=== PATIENT | female | born 1970 | race Caucasian/White ===

== ENCOUNTER 2016-06-26 05:33 | Day surgery (SDC) | payer OTHER ==
[2016-06-19 10:29] LABS: ABSOLUTE EOSINOPHILS # (AUTO) 0.1 10^3/uL (0.0-0.6); ABSOLUTE LYMPHOCYTES (AUTO) 1.7 10^3/uL (0.5-4.7); ABSOLUTE MONOCYTES (AUTO) 0.5 10^3/uL (0.1-1.4); ABSOLUTE NEUT (AUTO) 4.1 10^3/uL (1.7-8.2); BASOPHILS % (AUTO) 0.3 % (0-2); EOSINOPHILS % (AUTO) 1.9 % (0-6); HEMATOCRIT 41.2 % (36.0-47.0); HEMOGLOBIN 13.2 g/dL (12.0-15.5); HGB HCT DIFFERENCE -1.6; LYMPHOCYTES % (AUTO) 26.5 % (13-45); MEAN CORPUSCULAR HEMOGLOBIN 29.4 pg (27.0-33.4); MEAN CORPUSCULAR HGB CONC 32.1 g/dL (32.0-36.0); MEAN CORPUSCULAR VOLUME 92 fl (80-97); MONOCYTES % (AUTO) 8.1 % (3-13); RED CELL DISTRIBUTION WIDTH 13.9 % (11.5-14.0); SEGMENTED NEUTROPHILS % (AUTO) 63.2 % (42-78); WHITE BLOOD COUNT 6.5 10^3/uL (4.0-10.5)
[2016-06-19 10:37] LABS: PROTHROMBIN TIME 13.4 SEC (11.4-15.4)
[2016-06-19 11:02] LABS: ALANINE AMINOTRANSFERASE 29 U/L (9-52); ALBUMIN 3.6 g/dL (3.5-5.0); ALKALINE PHOSPHATASE 124 U/L (38-126); ANION GAP 10 (5-19); ASPARTATE AMINO TRANSFERASE 18 U/L (14-36); BILIRUBIN,TOTAL 0.4 mg/dL (0.2-1.3); BLOOD UREA NITROGEN 16 mg/dL (7-20); CALCIUM 9.4 mg/dL (8.4-10.2); CARBON DIOXIDE 27 mmol/L (22-30); CHLORIDE 103 mmol/L (98-107); CREATININE RESULT 0.65 mg/dL (0.52-1.25); GLUCOSE 85 mg/dL (75-110); POTASSIUM 4.7 mmol/L (3.6-5.0); SODIUM 140.4 mmol/L (137-145); TOTAL PROTEIN 6.7 g/dL (6.3-8.2)
--- NOTE | 2016-06-19 12:12 | EKG REPORT ---
SEVERITY:- NORMAL ECG - SINUS RHYTHM : Confirmed by: Shahid Trent MD 19-Jun-2016 12:11:29
[~2016-06-26 05:33] MED LIST: CLINDAMYCIN 900 MG/D5W RTU 50 ML IV PRN; LIDOCAINE 0.5% INJ-PF (5 MG/ML) 50 ML SDV SUBCUT PRN; RINGERS SOLUTION,LACTATED 1,000 ML IV PRN
[2016-06-26] MEDS ORDERED: ACETAMINOPHEN 100 ML IV ONE (06:50)
[2016-06-26] MEDS ORDERED: FENTANYL CITRATE INJ/PF 250 MCG/5 ML AMPULE ONE (06:50)
[2016-06-26] MEDS ORDERED: HYDROMORPHONE HCL INJ/PF 2 MG/ML AMPULE ONE (06:50)
[2016-06-26] MEDS ORDERED: MIDAZOLAM 2 MG/2 ML INJ ONE (06:50)
[2016-06-26] MEDS ORDERED: PROPOFOL INJ 200 MG/20 ML VIAL IV ONE (06:50)
[2016-06-26] MEDS ORDERED: DEXMEDETOMIDINE INJ 80 MCG/20 ML VIAL IV ONE (06:51)
[2016-06-26] MEDS ORDERED: BUPIVACAINE HCL 0.25 % INJ/PF (2.5 MG/1 ML) 30 ML VIAL ONE (07:22)
[2016-06-26] MEDS ORDERED: METHYLENE BLUE INJ/PF 10 MG/1 ML SDV ONE (07:25)
[2016-06-26] MEDS ORDERED: DIPHENHYDRAMINE HCL 50 MG/ML VIAL IV PRN (10:49)
[2016-06-26] MEDS ORDERED: FENTANYL CITRATE INJ/PF 100 MCG/2 ML AMPUL IV PRN ×3 (10:49)
[2016-06-26] MEDS ORDERED: OXYCODONE-ACETAMINOPHEN 5-325 MG TABLET PO PRN ×2 (10:49)
[2016-06-26] MEDS ORDERED: MORPHINE SULFATE 10 MG/ML INJ IV PRN ×2 (10:49→11:46)
[2016-06-26] MEDS ORDERED: PROMETHAZINE HCL INJ 25 MG/1 ML VIAL IV PRN ×3 (10:49→11:47)
[2016-06-26] MEDS ORDERED: MEPERIDINE HCL/PF INJ 25 MG/1 ML DISP.SYRIN IV PRN (10:49)
[2016-06-26] MEDS: FENTANYL CITRATE INJ/PF 100 MCG/2 ML AMPUL ONE ×2 (11:05→11:10)
[2016-06-26] MEDS ORDERED: ONDANSETRON HCL INJ/PF 4 MG/2 ML SDV IV PRN ×2 (11:47→12:57)
[2016-06-26] MEDS ORDERED: NEOSTIGMINE METHYLSULFATE 10 MG/10 ML VIAL ONE (11:58)
[2016-06-26] MEDS ORDERED: SUCCINYLCHOLINE CHLORIDE INJ 200 MG/10 ML VIAL ONE (11:58)
[2016-06-26] MEDS ORDERED: GLYCOPYRROLATE INJ 0.4 MG/2 ML VIAL ONE (11:58)
[2016-06-26] MEDS ORDERED: KETOROLAC TROMETHAMINE 60 MG/2 ML SDV ONE (11:58)
[2016-06-26] MEDS ORDERED: ONDANSETRON HCL INJ/PF 4 MG/2 ML SDV ONE (11:58)
[2016-06-26] MEDS ORDERED: DEXAMETHASONE SOD PHOSPHATE INJ 4 MG/1 ML VIAL ONE (11:58)
[2016-06-26] MEDS ORDERED: LIDOCAINE 2% INJ-PF (20 MG/ML) 10 ML AMPUL ONE (11:58)
[2016-06-26] MEDS ORDERED: ROCURONIUM BROMIDE INJ 50 MG/5 ML VIAL IV ONE (11:58)
[2016-06-26] MEDS ORDERED: OXYCODONE HCL IR 5 MG TABLET PO PRN (12:09)
--- NOTE | 2016-06-26 12:13 | OPERATIVE REPORT E ---
Operative Report NAME: CHARLES SANTOS : 1970 AGE: 46Y DATE OF SURGERY: 06/26/2016 ROOM: PREOPERATIVE DIAGNOSIS: Menometrorrhagia unresponsive to medical therapy. POSTOPERATIVE DIAGNOSIS: Menometrorrhagia unresponsive to medical therapy. OPERATION PERFORMED: 1. Robotic total laparoscopic hysterectomy. 2. Right salpingo-oophorectomy. 3. Cystoscopy. SURGEON: Zee Murguia MD COMPOSITE ENGINEER: Gal Mathews MD ANESTHESIA: General. ESTIMATED BLOOD LOSS: 200. INTRAVENOUS FLUIDS: 1500 mL. URINE OUTPUT: 250 mL clear urine at end of procedure. COMPLICATIONS: None. INDICATIONS: Patient is a 46-year-old 2, para 2-0-0-2 who has had menometrorrhagia for several years and has attempted multiple medical regimens including control pills and intrauterine device. Patient persisted to continue to have excessive heavy vaginal bleeding without the resolution of symptoms. Patient was counseled on procedure of robotic hysterectomy including but not limited to bleeding, infection, injury to surrounding organs or tissue, need of transfusion, possible exploratory laparotomy in case there is bleeding that cannot be identified or visualized during the surgical procedure. Patient understood and consented to procedure and agreed to proceed to the operating room. FINDINGS: Uterine sound 8 cm, soft, boggy, anteverted, mobile uterus. Boggy soft uterus consistent with adenomyosis. Normal right ovary and normal right tube. There was a remnant of the left fallopian tube that had a paratubal cyst. Also, there were multiple anterior abdominal adhesions from her previous surgical procedures. DESCRIPTION OF PROCEDURE: Patient was taken to operating room, and general anesthesia was induced without any difficulty. She was placed in the dorsal lithotomy position and sterilely prepped and draped in the usual sterile fashion. A Ortega catheter was placed in the bladder. A heavy weighted speculum was placed in the vaginal vault. A single-tooth tenaculum was placed onto the anterior lip of the cervix. The cervical os was dilated, so there was no need for us to cervically dilate the cervix with any Hegar dilators. Two imhnho-xj-ckrah stitches around 3 o'clock and 9 o'clock were placed as anchoring stitches prior to placing the VCare. The VCare manipulator was attached to the uterus with a cervical ring and anchored into the stitches on the right side and left side. The weighted speculum was removed from the vaginal mucosa. The single-tooth tenaculum was removed from the anterior lip of the cervix and then of course the 2 sutures were placed on the lateral aspects of the cervix to be used as a traction later in case when needed. A vertical supraumbilical incision lateral to her previous incisions from the cholecystectomy was made with a scalpel and Veress needle was placed in the abdominal cavity. Through the Veress needle, carbon dioxide was infused until pneumoperitoneum was obtained. The Veress needle was then removed, and the supraumbilical incision was then extended. A 12-mm trocar and sleeve were placed into the abdominal cavity without difficulty. The trocar was removed. Robotic laparoscope was placed into the abdominal cavity. Please see the above findings. Local anesthesia was used at the sites of all the ports prior to placing the SurgiPort's. Two 8-mm SurgiPort's were placed inferior to the umbilicus and lateral to the rectus abdominus muscles bilaterally. These ports were put into the abdominal cavity under direct visualization, and an digital sales assistant port was placed in the right upper quadrant region. The da Megan robot was then backed with the SurgiPort's and attached and docked appropriately. At this point, prior to performing the hysterectomy with with right salpingo-oophorectomy, the ureters on both sides, the right and the left, were visualized and both had excellent peristalsis. At this point, the infundibulopelvic ligament on the right side was grasped using the right port LigaSure like device. It was clamped, cauterized, and transected along the mesosalpinx all the way down to the anterior broad ligament and posterior broad ligament. Of course, the round ligaments on the right side that was cauterized and transected also all the way down to the level of the uterus. On the contralateral side, it was performed in a similar fashion except there was not a left ovary due to her history of left salpingo-oophorectomy in the past at age 15; however, visualizing the round ligament on the left, it was grasped, cauterized, and transected with the LigaSure like device, cauterized and transected along the mesosalpinx. The round ligament was cauterized and transected all the way down to the level of the uterus. The uterine vasculature was identified on both sides and they were both cauterized multiple times. The vesicouterine peritoneum on the right side was then incised in an elliptical fashion forming the right side of the bladder flap. The bladder was then pushed down to the lower uterine segment without any difficulty. Again, the uterine vasculature was identified and cauterized, and there were multiple oozing spots that were cauterized using bipolar. The ring was identified anteriorly, and anterior colpotomy was performed. Again, the uterine vasculature was cauterized bilaterally. The colpotomy was extended. After completely circumscribing the scissors from the vaginal cuff, the uterus, the right fallopian tube and ovary, and the remnant of the left fallopian tube and the cervix were then delivered through the vaginal tissue and mucosa. The vaginal cuff was closed using running V-Loc, 180-day suture. The pelvis was irrigated with a copious amount of normal saline. Hemostasis was found to be secured. After closing the vaginal cuff and visualizing both ureters on both lateral pelvic sidewalls having peristalsis, FloSeal was injected along the vaginal cuff. Survey of the right and left pelvic sidewalls revealed completely hemostatic environment, and the vaginal cuff was hemostatic as well prior to insertion of the FloSeal. At this point, cystoscopy was performed prior to removing the robot. The cystoscope was introduced without any difficulty. The bladder integrity was visualized. There were no foreign bodies or injury to the bladder wall. Both ureteral orifices were visualized with strong jets of flow from both ureters that were identified. At this point, the cystoscope was removed after making sure there was no foreign body or trauma to the bladder wall and having a double bubble sign and excellent strong efflux from both ureters. The robot was undocked and then the abdomen was desufflated and all the trocars were removed. The 12-mm supraumbilical SurgiPort incision was repaired with a UR-6 to reapproximate the fascia, and the remaining incisions were closed with 4-0 Monocryl in a horizontal mattress fashion, running the supraumbilical incision with 4-0 Monocryl continuously in a subcuticular fashion. All sponge, needle, lap, and instrument counts were found to be correct x2. Patient receive preoperative IV antibiotics prior to starting the procedure. The Ortega bag was noted to be of clear urine. The patient tolerated the procedure well and was sent to the recovery room in excellent condition. DICTATING PHYSICIAN: Zee Murguia MD [id number] PHY#: [id number] ID: [id number] JOB#: [id number] ACCT: [id number] cc:Zee Murguia >
[2016-06-26] MEDS ORDERED: NORMAL SALINE 500 ML IV ONE (12:15)
[2016-06-26] MEDS: OXYCODONE-ACETAMINOPHEN 5-325 MG TABLET PO PRN (20:01)
[2016-06-27] MEDS: OXYCODONE-ACETAMINOPHEN 5-325 MG TABLET PO PRN (03:53)
[2016-06-27 08:34] VITALS: BP 129/89
== END 2016-06-27 09:29 | disposition home or self-care (01) ==
LOC: OROUT 05:33 → 2S 12:17 → OROUT 06-27 09:29
PROVIDERS: ATTEND Obstetrics & Gynecology
PROC: 0UTC4ZZ Resection of Cervix, Percutaneous Endoscopic Approach (ICD-10-PCS; 2016-06-26)
PROC: 0UT04ZZ Resection of Right Ovary, Percutaneous Endoscopic Approach (ICD-10-PCS; 2016-06-26)
PROC: 0UT54ZZ Resection of Right Fallopian Tube, Percutaneous Endoscopic Approach (ICD-10-PCS; 2016-06-26)
PROC: 8E0W4CZ Robotic Assisted Procedure of Trunk Region, Percutaneous Endoscopic Approach (ICD-10-PCS; 2016-06-26)
PROC: 0UT94ZZ Resection of Uterus, Percutaneous Endoscopic Approach (ICD-10-PCS; principal; 2016-06-26 07:30)
DX: N93.9 Abnormal uterine and vaginal bleeding, unspecified (principal); N72 Inflammatory disease of cervix uteri; N83.8 Other noninflammatory disorders of ovary, fallopian tube and broad ligament; N80.0 Endometriosis of uterus; G47.30 Sleep apnea, unspecified; N92.1 Excessive and frequent menstruation with irregular cycle; G51.0 Bell's palsy; M19.90 Unspecified osteoarthritis, unspecified site; E66.9 Obesity, unspecified; Z88.1 Allergy status to other antibiotic agents
CPT/HCPCS: 58571; S2900; 36415; 71020; 80053; 81025; 840; 85025; 85610; 85730; 86850; 86900; 86901; 88307; 93005; 93010; J0131; J0330; J1100; J1170; J1885; J2250; J2270; J2405; J2704; J3010; J3490; Q9968

== ENCOUNTER → 2017-09-27 | Outpatient (CLI) | payer OTHER ==
--- NOTE | 2017-09-27 08:56 | WOMENS IMAGING REPORT ---
EXAM DESCRIPTION: BILAT SCREENING MAMMO W/CAD COMPLETED DATE/TIME: 09/27/2017 8:40 am REASON FOR STUDY: SCREENING MAMMO Z12.31 ENCNTR SCREEN MAMMOGRAM FOR MALIGNANT NEOPLASM OF MANUEL COMPARISON: 05/14/2014 and 04/15/2012. TECHNIQUE: Standard craniocaudal and mediolateral oblique views of each breast recorded using [employer] acquisition. LIMITATIONS: None. FINDINGS: No masses, calcifications or architectural distortion. No areas of suspicion. Read with the assistance of CAD. .[facility] - R2 Cenova Version 1.3 .[facility] - R2 Cenova Version 1.3 .[facility] - R2 Cenova Version 2.4 .[facility] [place] - R2 Cenova Version 2.4 .[facility] - R2 D[employer] Supervisor Version 9.2 IMPRESSION: NORMAL MAMMOGRAM. BIRADS 1. BREAST DENSITY: b. There are scattered areas of fibroglandular density. BIRAD: 1 NEGATIVE RECOMMENDATION: ROUTINE SCREENING COMMENT: The patient has been notified of the results by letter per [place] requirements. Additional no tification policies are in place for contacting patient with suspicious or incomplete findings. Quality ID #225: The [employer] recommends an annual screening mammogram for women aged 40 years or over. This facility utilizes a reminder system to ensure that all patients receive reminder letters, and/or direct phone calls for appointments. This includes reminders for routine scr eening mammograms, diagnostic mammograms, or other Breast Imaging Interventions when appropriate. Th is patient will be placed in the appropriate reminder system. The [employer] (ACR) has developed recommendations for screening MRI of the breast s in certain patient populations, to be used in conjunction with mammography. Breast MRI surveillanc e may be appropriate for women with more than 20% lifetime risk of developing breast cancer as deter mined by genetic testing, significant family history of the disease, or history of mantle radiation f or Hodgkins Disease. ACR Practice Guidelines 2008. TECHNICAL DOCUMENTATION: FINDING NUMBER: (1) ASSESSMENT: (1) JOB ID: [id number] [employer]- All Rights Reserved Reading location - IP/workstation name: [email or web address]
== END ==
LOC: WC 08:23
PROVIDERS: ATTEND Physician Assistant
DX: Z12.31 Encounter for screening mammogram for malignant neoplasm of breast (principal)
CPT/HCPCS: 77067

== ENCOUNTER → 2019-01-15 | Outpatient (CLI) | payer OTHER ==
--- NOTE | 2019-01-15 10:44 | WOMENS IMAGING REPORT ---
EXAM DESCRIPTION: BILAT SCREENING MAMMO W/CAD COMPLETED DATE/TIME: 01/15/2019 9:20 am REASON FOR STUDY: Z12.31 ENCOUNTER FOR SCREENING MAMMOGRAM FOR MALIGNANT NEOPLASM OF BREAST Z12.31 ENCNTR SCREEN MAMMOGRAM FOR MALIGNANT NEOPLASM OF MANUEL COMPARISON: 09/27/2017 and 05/14/2014. EXAM PARAMETERS: Standard craniocaudal and mediolateral oblique views of each breast recorded using digital acquisition. Read with the assistance of CAD. .[facility] - [employer] Technical [employer] Specialist Version 9.2 LIMITATIONS: None. FINDINGS: No suspicious masses, suspicious calcifications or architectural distortion. No areas of c oncern. IMPRESSION: Negative MAMMOGRAM. BIRADS 1 BREAST DENSITY: a. The breasts are almost entirely fatty. BIRAD: ASSESSMENT: 1 NEGATIVE RECOMMENDATION: ROUTINE SCREENING COMMENT: The patient has been notified of the results by letter per MQSA requirements. Additional no tification policies are in place for contacting patient with suspicious or incomplete findings. Quality ID #[id number]: The [employer] recommends an annual screening mammogram for women aged 40 years or over. This facility utilizes a reminder system to ensure that all patients receive reminder letters, and/or direct phone calls for appointments. This includes reminders for routine scr eening mammograms, diagnostic mammograms, or other Breast Imaging Interventions when appropriate. Th is patient will be placed in the appropriate reminder system. TECHNICAL DOCUMENTATION: FINDING NUMBER: (1) ASSESSMENT: (1) JOB ID: [id number] [employer]- All Rights Reserved Reading location - IP/workstation name: [email or web address]
== END ==
LOC: WI 08:13
PROVIDERS: ATTEND Physician Assistant
DX: Z12.31 Encounter for screening mammogram for malignant neoplasm of breast (principal)
CPT/HCPCS: 77067

== ENCOUNTER → 2020-03-11 | Outpatient (CLI) | payer OTHER ==
--- NOTE | 2020-03-11 09:50 | WOMENS IMAGING REPORT ---
EXAM DESCRIPTION: BILAT SCREENING MAMMO W/CAD IMAGES COMPLETED DATE/TIME: 03/11/2020 9:01 am REASON FOR STUDY: Z12.31 ENCNTR SCREEN MAMMOGRAM FOR MALIGNANT NEOPLASM OF BREAST Z12.31 ENCNTR SCR EEN MAMMOGRAM FOR MALIGNANT NEOPLASM OF MANUEL COMPARISON: 2011 to 2018 EXAM PARAMETERS: Standard craniocaudal and mediolateral oblique views of each breast recorded using digital acquisition. Read with the assistance of CAD. .[facility] - [employer] Home Performance Consultant Version 9.2 LIMITATIONS: None. FINDINGS: No suspicious masses, suspicious calcifications or architectural distortion. No areas of c oncern. IMPRESSION: NEGATIVE MAMMOGRAM. BIRADS 1 BREAST DENSITY: a. The breasts are almost entirely fatty. BIRAD: ASSESSMENT: 1 NEGATIVE RECOMMENDATION: ROUTINE SCREENING COMMENT: The patient has been notified of the results by letter per MQSA requirements. Additional no tification policies are in place for contacting patient with suspicious or incomplete findings. Quality ID #225: The [employer] recommends an annual screening mammogram for women aged 40 years or over. This facility utilizes a reminder system to ensure that all patients receive reminder letters, and/or direct phone calls for appointments. This includes reminders for routine scr eening mammograms, diagnostic mammograms, or other Breast Imaging Interventions when appropriate. Th is patient will be placed in the appropriate reminder system. TECHNICAL DOCUMENTATION: FINDING NUMBER: (1) ASSESSMENT: (1) JOB ID: [id number] 2010 [employer]- All Rights Reserved Reading location - IP/workstation name: [email or web address]
== END ==
LOC: WI 08:21
PROVIDERS: ATTEND Physician Assistant
DX: Z12.31 Encounter for screening mammogram for malignant neoplasm of breast (principal)
CPT/HCPCS: 77067